=== PATIENT | male | born 1990 | race Caucasian/White ===

== ENCOUNTER 2017-10-29 16:56 | Emergency (ER) | payer OTHER ==
[~2017-10-29] VITALS: Ht 180.3 cm; Wt 74.8 kg
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
--- NOTE | 2017-10-29 17:20 | NUR ---
NEW IV STARTED ON LAC, 20 G. BLOOD DRAWN AND SENT TO LAB.
[2017-10-29] MEDS ORDERED: ONDANSETRON HCL/PF 4 MG/2 ML VIAL ONE (17:23)
[2017-10-29] MEDS ORDERED: HYDROMORPHONE 1 MG/1 ML DISP.SYRIN ONE ×3 (17:24→19:34)
[2017-10-29] MEDS ORDERED: ONDANSETRON HCL/PF 4 MG/2 ML VIAL IVP ONE (17:30)
[2017-10-29] MEDS ORDERED: IV NS 0.9% 1,000 ML BAG IV ONE (17:30)
[2017-10-29] MEDS ORDERED: HYDROMORPHONE INJ 0.5 MG/0.5 ML SYRINGE IV ONE ×3 (17:30→20:00)
[2017-10-29 17:32] LABS: BASOPHILS # (AUTO) 0.3 /CMM (0.0-0.2); BASOPHILS % (AUTO) 2.9 % (0.0-2.0); EOSINOPHILS % (AUTO) 0.5 % (0.0-6.0); HEMATOCRIT 46 % (39-51); LYMPHOCYTES # (AUTO) 2.7 /CMM (0.8-4.8); LYMPHOCYTES % (AUTO) 28.2 % (20.0-44.0); MEAN CORPUSCULAR HEMOGLOBIN 29 PG (26.0-33.0); MEAN CORPUSCULAR HGB CONC 35 g/dl (31.0-36.0); MEAN CORPUSCULAR VOLUME 85 fL (80-96); MONOCYTES # (AUTO) 0.4 /CMM (0.1-1.30); MONOCYTES % (AUTO) 3.9 % (2.0-12.0); NEUTROPHILS % (AUTO) 64.5 % (43.0-81.0); PLATELET COUNT (AUTO) 219 /CMM (150-450); RDW COEFFICIENT OF VARIATION 12.1 (11.5-15.0); RED BLOOD CELL COUNT(AUTO) 5.42 MIL/uL (4.5-6.0); WHITE BLOOD COUNT (AUTO) 9.4 K/uL (4.3-11.0)
--- NOTE | 2017-10-29 17:32 | NUR ---
PATIENT MEDICATED PER MD ORDERS.
[2017-10-29 17:41] LABS: CALCIUM, SERUM 8.5 mg/dL (8.5-10.1); CREATININE 0.9 mg/dL (0.6-1.3)
--- NOTE | 2017-10-29 17:43 | NUR ---
PATIENT TAKENT TO CT VIA WHEELCHAIR.
[2017-10-29 17:47] LABS: ALBUMIN 3.9 g/dL (3.4-5.0); BILIRUBIN,DIRECT 0.1 mg/dL (0.0-0.2); BILIRUBIN,TOTAL 0.5 mg/dL (0.2-1.0); TOTAL PROTEIN, SERUM 6.8 g/dL (6.4-8.2)
--- NOTE | 2017-10-29 18:20 | NUR ---
PATIENT RETURNED BACK FROM CT IN STABLE CONDITION.
--- NOTE | 2017-10-29 18:30 | NUR ---
PATIENT GIVEN SECOND DOSE OF DILAUDID PER MD ORDERS.
--- NOTE | 2017-10-29 19:16 | NUR ---
REPORT GIVEN TO NELLY GASPAR FOR YOSI.
[2017-10-29 20:01] VITALS: BP 126/99
== END 2017-10-29 20:02 | disposition home or self-care (01) ==
LOC: ER 16:58
DX: R10.84 Generalized abdominal pain (principal); F41.9 Anxiety disorder, unspecified; K80.20 Calculus of gallbladder without cholecystitis without obstruction; Q63.1 Lobulated, fused and horseshoe kidney; F31.9 Bipolar disorder, unspecified; F17.200 Nicotine dependence, unspecified, uncomplicated; Z85.038 Personal history of other malignant neoplasm of large intestine
CPT/HCPCS: 36415; 76705-TC; 80048-TC; 80076-TC; 83690-TC; 85025-TC; A4606; J1170; J2405; J7030; Z7610

== ENCOUNTER 2017-12-25 12:01 | Emergency (ER) | payer OTHER ==
[~2017-12-25] VITALS: Ht 180.3 cm; Wt 68.0 kg
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
[2017-12-25] MEDS ORDERED: METOCLOPRAMIDE HCL 10 MG/2 ML VIAL ONE (12:39)
[2017-12-25] MEDS ORDERED: ONDANSETRON HCL/PF 4 MG/2 ML VIAL ONE (12:40)
[2017-12-25] MEDS ORDERED: MORPHINE SULFATE INJ 4 MG/ML DISP.SYRIN ONE (12:41)
[2017-12-25 12:51] LABS: BASOPHILS % (AUTO) 0.6 % (0.0-2.0); EOSINOPHILS # (AUTO) 0.1 /CMM (0.0-0.7); EOSINOPHILS % (AUTO) 0.7 % (0.0-6.0); HEMATOCRIT 45 % (39-51); HEMOGLOBIN 15.8 g/dL (13.5-17.5); LYMPHOCYTES # (AUTO) 1.8 /CMM (0.8-4.8); LYMPHOCYTES % (AUTO) 22.6 % (20.0-44.0); MEAN CORPUSCULAR HEMOGLOBIN 30 PG (26.0-33.0); MEAN CORPUSCULAR HGB CONC 35 g/dl (31.0-36.0); MEAN CORPUSCULAR VOLUME 85 fL (80-96); MONOCYTES # (AUTO) 0.3 /CMM (0.1-1.30); MONOCYTES % (AUTO) 3.5 % (2.0-12.0); NEUTROPHILS # (AUTO) 5.7 /CMM (1.8-8.9); NEUTROPHILS % (AUTO) 72.6 % (43.0-81.0); PLATELET COUNT (AUTO) 221 /CMM (150-450); RDW COEFFICIENT OF VARIATION 12.1 (11.5-15.0); RED BLOOD CELL COUNT(AUTO) 5.34 MIL/uL (4.5-6.0); WHITE BLOOD COUNT (AUTO) 7.9 K/uL (4.3-11.0)
[2017-12-25 13:00] LABS: CALCIUM, SERUM 8.8 mg/dL (8.5-10.1); CREATININE 1.1 mg/dL (0.6-1.3); POTASSIUM 4.4 mmol/L (3.5-5.1)
[2017-12-25] MEDS ORDERED: ONDANSETRON HCL/PF 4 MG/2 ML VIAL IVP ONE (13:00)
[2017-12-25] MEDS ORDERED: MORPHINE SULFATE INJ 2 MG/ML DISP.SYRIN IV ONE (13:00)
[2017-12-25] MEDS ORDERED: IV NS 0.9% 1,000 ML BAG IV ONE (13:00)
[2017-12-25] MEDS ORDERED: METOCLOPRAMIDE HCL 10 MG/2 ML VIAL IV ONE (13:00)
[2017-12-25 13:04] LABS: INR 0.93 (0.85-1.15)
--- NOTE | 2017-12-25 13:05 | NUR ---
BLOOD AND URINE SAMPLE SENT TO LAB
[2017-12-25 13:06] LABS: ALBUMIN 3.7 g/dL (3.4-5.0); BILIRUBIN,DIRECT 0.1 mg/dL (0.0-0.2); BILIRUBIN,TOTAL 0.3 mg/dL (0.2-1.0); TOTAL PROTEIN, SERUM 6.6 g/dL (6.4-8.2)
[2017-12-25 13:21] LABS: APPEARANCE,URINE Clear (CLEAR); BILIRUBIN,URINE Negative (NEGATIVE); BLOOD, URINE Trace-intact Ery/uL (NEGATIVE); COLOR,URINE Yellow (YELLOW); KETONES,URINE Negative (NEGATIVE); LEUKOCYTE ESTERASE ,URINE Negative (NEGATIVE); NITRITE, URINE Negative (NEGATIVE); PROTEIN,URINE Negative (NEGATIVE); UGLUCOSE Negative (NEGATIVE); UROBILINOGEN,URINE 0.2 EU/dL (0.2)
[2017-12-25 13:32] LABS: BACTERIA,URINE None seen /HPF (None Seen); SQUAMOUS EPITHELIAL CELL,UR None Seen /HPF (None Seen); WBC,URINE 0-2 /HPF (0-3)
--- NOTE | 2017-12-25 14:12 | NUR ---
Patient discharged to home in stable condition. Written and verbal after care instructions given. Patient verbalizes understanding of instruction. Prescription given. IV removed. Catheter intact and site benign. Pressure and 4x4 applied to site. No bleeding noted.
[2017-12-25 14:23] VITALS: BP 118/85
== END 2017-12-25 14:24 | disposition home or self-care (01) ==
LOC: ER 12:02
DX: K31.84 Gastroparesis (principal); F17.200 Nicotine dependence, unspecified, uncomplicated; Q63.1 Lobulated, fused and horseshoe kidney
CPT/HCPCS: 36415; 80048; 80076; 81001; 83690; 85025; 85730; 96361; 96374; 96375; 99284; A4606; J2270; J2405; J2765; J7030 ×2; Z7610; 81000-TC

== ENCOUNTER 2018-05-28 14:11 | Emergency (ER) | payer OTHER ==
[~2018-05-28] VITALS: Ht 180.3 cm; Wt 79.4 kg
[2018-05-28 14:35] VITALS: BP 141/103
[2018-05-28] MEDS ORDERED: ONDANSETRON HCL/PF 4 MG/2 ML VIAL ONE (15:19)
[2018-05-28] MEDS ORDERED: MORPHINE SULFATE INJ 4 MG/ML DISP.SYRIN ONE (15:20)
[2018-05-28 15:21] LABS: BASOPHILS % (AUTO) 0.4 % (0.0-2.0); EOSINOPHILS % (AUTO) 0.4 % (0.0-6.0); HEMATOCRIT 45 % (39-51); HEMOGLOBIN 15.2 g/dL (13.5-17.5); LYMPHOCYTES # (AUTO) 2.1 /CMM (0.8-4.8); LYMPHOCYTES % (AUTO) 34.4 % (20.0-44.0); MEAN CORPUSCULAR HEMOGLOBIN 29 PG (26.0-33.0); MEAN CORPUSCULAR HGB CONC 34 g/dl (31.0-36.0); MEAN CORPUSCULAR VOLUME 85 fL (80-96); MONOCYTES # (AUTO) 0.3 /CMM (0.1-1.30); NEUTROPHILS # (AUTO) 3.8 /CMM (1.8-8.9); NEUTROPHILS % (AUTO) 59.8 % (43.0-81.0); PLATELET COUNT (AUTO) 259 /CMM (150-450); RDW COEFFICIENT OF VARIATION 12.1 (11.5-15.0); RED BLOOD CELL COUNT(AUTO) 5.32 MIL/uL (4.5-6.0); WHITE BLOOD COUNT (AUTO) 6.2 K/uL (4.3-11.0)
[2018-05-28] MEDS ORDERED: ONDANSETRON HCL/PF 4 MG/2 ML VIAL IVP ONE (15:30)
[2018-05-28] MEDS ORDERED: MORPHINE SULFATE INJ 2 MG/ML DISP.SYRIN IV ONE (15:30)
[2018-05-28] MEDS ORDERED: IV NS 0.9% 1,000 ML BAG IV ONE (15:30)
[2018-05-28 15:34] LABS: APPEARANCE,URINE Clear (CLEAR); BILIRUBIN,URINE Negative (NEGATIVE); BLOOD, URINE Negative Ery/uL (NEGATIVE); COLOR,URINE Light yellow (YELLOW); INR 0.9 (0.85-1.15); KETONES,URINE Negative (NEGATIVE); LEUKOCYTE ESTERASE ,URINE Negative (NEGATIVE); NITRITE, URINE Negative (NEGATIVE); PROTEIN,URINE Negative (NEGATIVE); UGLUCOSE Negative (NEGATIVE); UROBILINOGEN,URINE 0.2 EU/dL (0.2)
--- NOTE | 2018-05-28 15:43 | NUR ---
PT LEFT AMA & SIGNED FORM. TY TAO AWARE. DC'D SL ON RAC, CATHETER INTACT, APPLIED DRESSING & NO ACTIVE BLEEDING NOTED UPON LEAVING ED.
[2018-05-28 15:52] LABS: CALCIUM, SERUM 8.7 mg/dL (8.5-10.1); POTASSIUM 3.9 mmol/L (3.5-5.1)
[2018-05-28 15:53] LABS: BILIRUBIN,DIRECT 0.2 mg/dL (0.0-0.2); BILIRUBIN,TOTAL 0.7 mg/dL (0.2-1.0); CREATININE 0.9 mg/dL (0.6-1.3)
[2018-05-28 15:56] LABS: ALBUMIN 3.9 g/dL (3.4-5.0); TOTAL PROTEIN, SERUM 6.7 g/dL (6.4-8.2)
== END 2018-05-28 15:47 | disposition left against medical advice (07) ==
LOC: ER 14:15
DX: R10.31 Right lower quadrant pain (principal); F17.200 Nicotine dependence, unspecified, uncomplicated
CPT/HCPCS: 36415; 80048; 80076; 81001; 83690; 85025; 85730; 99284; A4606; Z7610; 81000-TC; J2270; J2405; J7030

== ENCOUNTER 2018-06-04 07:33 | Emergency (ER) | payer OTHER ==
[~2018-06-04] VITALS: Ht 180.3 cm; Wt 78.0 kg
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
[2018-06-04] MEDS ORDERED: IVAB5TAB PO (07:54)
[2018-06-04] MEDS ORDERED: NORT25CA PO (07:54)
[2018-06-04] MEDS ORDERED: PRED1TAB PO (07:54)
[2018-06-04] MEDS ORDERED: GABA-534 PO (07:54)
[2018-06-04] MEDS ORDERED: METH2.5T PO (07:54)
[2018-06-04] MEDS ORDERED: FOLI1TAB16 PO (07:54)
[2018-06-04] MEDS ORDERED: LEFL20TA NG (07:54)
[2018-06-04] MEDS ORDERED: METOCLOPRAMIDE HCL 10 MG/2 ML VIAL ONE (08:17)
[2018-06-04] MEDS ORDERED: MORPHINE SULFATE INJ 4 MG/ML DISP.SYRIN ONE (08:18)
[2018-06-04] MEDS ORDERED: FAMOTIDINE/PF INJ 20 MG/2 ML VIAL IV ONE ×2 (08:18→08:30)
[2018-06-04] MEDS ORDERED: MORPHINE SULFATE INJ 2 MG/ML DISP.SYRIN IV ONE (08:30)
[2018-06-04] MEDS ORDERED: IV NS 0.9% 1,000 ML BAG IV ONE (08:30)
[2018-06-04] MEDS ORDERED: METOCLOPRAMIDE HCL 10 MG/2 ML VIAL IV ONE (08:30)
[2018-06-04 08:36] LABS: BASOPHILS # (AUTO) 0.1 /CMM (0.0-0.2); BASOPHILS % (AUTO) 2.1 % (0.0-2.0); EOSINOPHILS % (AUTO) 1.1 % (0.0-6.0); HEMATOCRIT 45 % (39-51); HEMOGLOBIN 14.9 g/dL (13.5-17.5); LYMPHOCYTES # (AUTO) 1.7 /CMM (0.8-4.8); LYMPHOCYTES % (AUTO) 29.4 % (20.0-44.0); MEAN CORPUSCULAR HEMOGLOBIN 29 PG (26.0-33.0); MEAN CORPUSCULAR HGB CONC 33 g/dl (31.0-36.0); MEAN CORPUSCULAR VOLUME 89 fL (80-96); MONOCYTES # (AUTO) 0.3 /CMM (0.1-1.30); MONOCYTES % (AUTO) 5.2 % (2.0-12.0); NEUTROPHILS # (AUTO) 3.5 /CMM (1.8-8.9); NEUTROPHILS % (AUTO) 62.2 % (43.0-81.0); PLATELET COUNT (AUTO) 228 /CMM (150-450); RDW COEFFICIENT OF VARIATION 13.3 (11.5-15.0); WHITE BLOOD COUNT (AUTO) 5.7 K/uL (4.3-11.0)
--- NOTE | 2018-06-04 08:45 | NUR ---
US TECH AT BEDSIDE
[2018-06-04 08:52] LABS: CALCIUM, SERUM 8.1 mg/dL (8.5-10.1); CREATININE 1.1 mg/dL (0.6-1.3)
[2018-06-04 08:58] LABS: ALBUMIN 3.6 g/dL (3.4-5.0); BILIRUBIN,DIRECT 0.1 mg/dL (0.0-0.2); BILIRUBIN,TOTAL 0.3 mg/dL (0.2-1.0); TOTAL PROTEIN, SERUM 6.3 g/dL (6.4-8.2)
[2018-06-04 09:56] VITALS: BP 105/59
--- NOTE | 2018-06-04 10:00 | NUR ---
Patient discharged to home in stable condition. Written and verbal after care instructions given. Patient verbalizes understanding of instruction. IV removed. Catheter intact and site benign. Pressure and 4x4 applied to site. No bleeding noted. Prescription given.
== END 2018-06-04 10:07 | disposition home or self-care (01) ==
LOC: ER 07:34
DX: K92.2 Gastrointestinal hemorrhage, unspecified (principal); R11.2 Nausea with vomiting, unspecified; F12.10 Cannabis abuse, uncomplicated; R10.11 Right upper quadrant pain
CPT/HCPCS: 36415; 71045; 76700; 80048; 80076; 83690; 85025; 96361; 96374; 96375; 99285; A4606; J2270; J2765; J3490; J7030; Z7610

== ENCOUNTER 2018-10-29 13:07 | Emergency (ER) | payer OTHER ==
[~2018-10-29] VITALS: Ht 180.3 cm; Wt 77.1 kg
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
--- NOTE | 2018-10-29 13:20 | NUR ---
PA FOSTER AT BEDSIDE
--- NOTE | 2018-10-29 13:27 | NUR ---
PT DECIDED TO GET SOME REFERRAL FOR GI DOCTOR INSTEAD AND NOT DO BLOOD TESTS, TY ACEVEDO MADE AWARE.
[2018-10-29] MEDS ORDERED: METOCLOPRAMIDE HCL 10 MG TABLET ONE (13:29)
[2018-10-29] MEDS ORDERED: FAMOTIDINE/PF INJ 20 MG/2 ML VIAL IV ONE (13:30)
[2018-10-29] MEDS ORDERED: METOCLOPRAMIDE HCL 10 MG/2 ML VIAL IV ONE (13:30)
[2018-10-29] MEDS ORDERED: METOCLOPRAMIDE HCL 10 MG TABLET PO ONE (13:30)
[2018-10-29] MEDS ORDERED: IV NS 0.9% 1,000 ML BAG IV ONE (13:30)
[2018-10-29 13:59] VITALS: BP 123/84
--- NOTE | 2018-10-29 13:59 | NUR ---
Patient discharged to home in stable condition. Written and verbal after care instructions given. Patient verbalizes understanding of instruction.
== END 2018-10-29 14:00 | disposition home or self-care (01) ==
LOC: ER 13:08
DX: R11.2 Nausea with vomiting, unspecified (principal); K31.84 Gastroparesis; F17.200 Nicotine dependence, unspecified, uncomplicated; Q63.1 Lobulated, fused and horseshoe kidney
CPT/HCPCS: 99283; A4606; J8597; Z7610

== ENCOUNTER 2018-11-06 11:10 | Emergency (ER) | payer OTHER ==
[~2018-11-06] VITALS: Ht 180.3 cm; Wt 76.2 kg
--- NOTE | 2018-11-06 11:20 | NUR ---
PATIENT BROUGHT SELF IN FOR ABD PAIN THAT IS NOT CESSATING. HX OF GASTROPARESIS AND CONSTANT NAUSEA AND INTERMITTENT PAIN AND WORRIED THAT PAIN IS NOT DIMINISHING SO CAME INTO THE ER.
[2018-11-06] MEDS ORDERED: ONDANSETRON HCL/PF 4 MG/2 ML VIAL ONE ×2 (11:45→13:29)
[2018-11-06] MEDS ORDERED: HYDROMORPHONE INJ 0.5 MG/0.5 ML SYRINGE ONE ×2 (11:46→13:29)
[2018-11-06 11:59] LABS: BASOPHILS % (AUTO) 0.6 % (0.0-2.0); EOSINOPHILS % (AUTO) 0.2 % (0.0-6.0); HEMATOCRIT 48 % (39-51); HEMOGLOBIN 16.1 g/dL (13.5-17.5); LYMPHOCYTES # (AUTO) 1.9 /CMM (0.8-4.8); LYMPHOCYTES % (AUTO) 23.7 % (20.0-44.0); MEAN CORPUSCULAR HGB CONC 34 g/dl (31.0-36.0); MEAN CORPUSCULAR VOLUME 87 fL (80-96); MONOCYTES # (AUTO) 0.4 /CMM (0.1-1.30); NEUTROPHILS # (AUTO) 5.6 /CMM (1.8-8.9); NEUTROPHILS % (AUTO) 70.5 % (43.0-81.0); PLATELET COUNT (AUTO) 235 /CMM (150-450); RED BLOOD CELL COUNT(AUTO) 5.45 MIL/uL (4.5-6.0)
[2018-11-06] MEDS ORDERED: IV NS 0.9% 1,000 ML BAG IV ONE (12:00)
[2018-11-06] MEDS ORDERED: ONDANSETRON HCL/PF 4 MG/2 ML VIAL IVP ONE (12:00)
[2018-11-06] MEDS ORDERED: HYDROMORPHONE INJ 2 MG/ML DISP.SYRIN IV ONE (12:00)
[2018-11-06 12:14] LABS: ALBUMIN 4.3 g/dL (3.4-5.0); BILIRUBIN,DIRECT 0.1 mg/dL (0.0-0.2); BILIRUBIN,TOTAL 0.5 mg/dL (0.2-1.0); TOTAL PROTEIN, SERUM 7.4 g/dL (6.4-8.2)
[2018-11-06] MEDS ORDERED: ONDANSETRON HCL/PF - ER 4 MG/2 ML VIAL IM ONE (13:30)
[2018-11-06] MEDS ORDERED: HYDROMORPHONE 1 MG/1 ML DISP.SYRIN IV ONE (13:30)
[2018-11-06 14:06] VITALS: BP 122/72
--- NOTE | 2018-11-06 14:06 | NUR ---
Patient discharged to home in stable condition. Written and verbal after care instructions given. Patient verbalizes understanding of instruction.IV removed. Catheter intact and site benign. Pressure and 4x4 applied to site. No bleeding noted.
== END 2018-11-06 14:08 | disposition home or self-care (01) ==
LOC: ER 11:12
DX: R10.84 Generalized abdominal pain (principal); R11.10 Vomiting, unspecified; F17.200 Nicotine dependence, unspecified, uncomplicated
CPT/HCPCS: 36415; 74176; 80076; 83690; 85025; 96361; 96374; 96375; 96376; 99284; A4606; J2405 ×3; J7030; Z7610